=== PATIENT | male | born 1995 | race Caucasian/White ===

== ENCOUNTER 2017-12-07 08:22 | Day surgery (SDC) | payer OTHER ==
[~2017-12-07 08:22] MED LIST: CARBOXYMETHYLCELLULOSE SOD 0.5% 0.4 ML DROPERETTE ONE; DEXAMETHASONE SOD PHOS INJ 10 MG/1 ML VIAL ONE; FENTANYL CITRATE INJ/PF 100 MCG/2 ML AMPUL ONE; HYDROMORPHONE HCL INJ/PF 2 MG/ML AMPULE ONE; MIDAZOLAM 2 MG/2 ML INJ ONE; ONDANSETRON HCL INJ/PF 4 MG/2 ML SDV ONE; PROPOFOL INJ 200 MG/20 ML VIAL IV ONE; ROCURONIUM BROMIDE INJ 50 MG/5 ML VIAL IV ONE; SUCCINYLCHOLINE CHLORIDE INJ 200 MG/10 ML VIAL ONE
[2017-12-07] MEDS ORDERED: BUPIVACAINE HCL 0.5%/EPI 1:200000 INJ 1.8 ML CARTRIDGE ONE (09:38)
[2017-12-07] MEDS ORDERED: NALOXONE HCL INJ/PF 0.4 MG/1 ML SDV ONE (10:50)
--- NOTE | 2017-12-11 06:55 | SURGICARE OPERATIVE REPORT E ---
[facility] Operative Report NAME: NAEEM BOWENS AGE: 22Y DATE OF SURGERY: 12/07/2017 ROOM: PREOPERATIVE DIAGNOSES: 1. Acute recurrent tonsillitis. 2. Chronic tonsillitis. 3. Tonsillar hypertrophy. POSTOPERATIVE DIAGNOSES: 1. Acute recurrent tonsillitis. 2. Chronic tonsillitis. 3. Tonsillar hypertrophy. OPERATION PERFORMED: Bilateral tonsillectomy, patient age greater than 12. SURGEON: MAE FIGUEROA D.O. ANESTHETIC: General endotracheal. ANESTHESIA STAFF: SHANNON DOMINGUEZ ESTIMATED BLOOD LOSS: 5 mL. FLUIDS: 500 mL. COMPLICATIONS: None. DRAINS: None. SPONGE COUNT: Verified. MATERIALS FORWARDED SPECIMEN: Left and right tonsillar tissue. FINDINGS: 1. The tonsils were noted to be 2-3+ in size, and were cryptic in appearance. 2. The soft palatal tissues were redundant in nature and the uvula was unremarkable in appearance. INDICATIONS: This is a 22-year-old male patient who was seen and evaluated in the [facility] office. The patient had been referred for and he complained of a history of acute recurrent tonsillitis that was noted to require antibiotics occurring throughout the course of the year each year over the years. With the episodes, the patient experiences significant sore throat difficulty and poor p.o. intake. He is also missing work due to these episodes. The patient also complains of a history of symptoms consistent with chronic tonsillitis with history consistent with keratosis pharyngeus. Clinically, the patient is also noted to have tonsillar hypertrophy. There is no history of obstructive sleep apnea symptoms. After extensive discussion with the patient, recommendations and plan was for tonsillectomy. The procedures and all of their risks and complications were discussed in detail with the patient. He voices understanding of the described surgical plan, agreed to proceed, and consent was obtained. PROCEDURE: The patient was taken to the main operating room and placed on the operating room table in the supine position. Appropriate monitors were placed. Using mask and IV access, general anesthesia was induced. The patient was next transorally intubated without difficulty. The patient was rotated 90 degrees and positioned for tonsil surgery. The patient's lips, teeth, tongue and inside of the mouth were inspected and noted to be without defects. There was a mouth gag inserted. It was opened, and the patient was placed into suspension. There was a soft catheter placed through the patient's nose that was used to suspend the soft palate. Findings are as noted above. At this point, the plasma J-hook device was used to dissect and remove tonsillar tissue on each side. This device was also used to provide adequate hemostasis. Saline irritation was performed and suctioned. There was adequate hemostasis noted. The soft catheter was next released and removed from the patient's nose. The mouth gag was removed from the patient's mouth without difficulty. There was no damage to the lips, teeth, tongue, gums, or inside of the mouth. The patient was then returned to the anesthesia staff and was allowed to emerge from general anesthesia. The patient was extubated in the main operating room and was then transported to the post-anesthesia recovery unit in stable condition. There were no complications. DICTATING PHYSICIAN: MAE FIGUEROA D.O. [id number] Y#: [id number] ID: [id number] JOB#: [id number] ACCT: [id number] cc:MAE FIGUEROA D.O. >
== END 2017-12-07 12:05 | disposition home or self-care (01) ==
LOC: SC 08:22
PROVIDERS: ATTEND Otolaryngology
DX: J35.1 Hypertrophy of tonsils (principal); Z88.0 Allergy status to penicillin
CPT/HCPCS: 88304 ×2; 42826; J2250; J3490 ×3; J3010; J2310; J1170; J0330; J2405; J2704; J1100; 170